=== PATIENT | female | born 1945 | race Caucasian/White ===

== ENCOUNTER 2018-07-27 13:51 | Outpatient (CLI) | payer MEDICARE | END 2018-07-27 13:52 | disposition home or self-care (01) | LOC: BICMAMMO 13:51 | PROVIDERS: ATTEND Family Medicine | DX: Z12.31 Encounter for screening mammogram for malignant neoplasm of breast (principal); R92.1 Mammographic calcification found on diagnostic imaging of breast; Z80.3 Family history of malignant neoplasm of breast; Z80.8 Family history of malignant neoplasm of other organs or systems; Z98.890 Other specified postprocedural states | CPT/HCPCS: 77063; 77067 ==

== ENCOUNTER 2019-09-01 10:26 | Outpatient (CLI) | payer MEDICARE ==
--- NOTE | 2019-09-01 11:11 | MMO ---
Bilateral MAMMO Bilat Screen [facility]. CLINICAL HISTORY: Patient is 74 years old and is seen for screening. The patient has no family history of breast cancer. The patient has no personal history of cancer. VIEWS: The views performed were: bilateral craniocaudal with tomosynthesis and bilateral mediolateral oblique with tomosynthesis. FILMS COMPARED: The present examination has been compared to prior imaging studies performed at [facility] on 06/08/2014, 06/21/2015, 11/13/2016 and 07/27/2018. This study has been interpreted with the assistance of computer-aided detection. MAMMOGRAM FINDINGS: The breasts are heterogeneously dense, which could obscure a lesion on mammography. Finding 1: There are stable post operative changes seen in the left breast. Finding 2: There are stable benign appearing calcifications seen in both breasts. There are no suspicious masses, suspicious calcifications, or new areas of architectural distortion. IMPRESSION: THERE IS NO MAMMOGRAPHIC EVIDENCE OF MALIGNANCY. A ROUTINE FOLLOW-UP MAMMOGRAM IN 1 YEAR IS RECOMMENDED. THE RESULTS OF THIS EXAM WERE SENT TO THE PATIENT. ACR BI-RADS Category 2 - Benign finding MAMMOGRAPHY NOTE: 1. A negative mammogram report should not delay a biopsy if a dominant of clinically suspicious mass is present. 2. Approximately 10% to 15% of breast cancers are not detected by mammography. 3. Adenosis and dense breasts may obscure an underlying neoplasm. Reported by: MITESH SPARKS MD Electonically Signed: [id number]
== END 2019-09-01 10:27 | disposition home or self-care (01) ==
LOC: BICMAMMO 10:26
PROVIDERS: ATTEND Family Medicine
DX: Z12.31 Encounter for screening mammogram for malignant neoplasm of breast (principal)
CPT/HCPCS: 77063; 77067

== ENCOUNTER 2020-05-09 06:52 | Outpatient (CLI) | payer MEDICARE, OTHER ==
[2020-05-09 14:28] LABS: #Eosinphils 0.1 thou/uL (0.0-0.7); #Lymphocytes 1.9 thou/uL (1.20-3.40); #Monocytes 0.6 thou/uL (0.11-0.59); #Neutrophils 3.3 thou/uL (1.40-6.50); %Basophils 0.8 % (0.0-1.0); %Eosinophils 1.9 % (0.0-10.0); %Lymphocytes 32.5 % (21.0-51.0); %Monocytes 9.2 % (0.0-10.0); %Neutrophils 55.6 % (42.0-75.0); Hemoglobin 14.3 g/dL (12.0-16.0); Mean Corpuscular HGB CONC 32.5 g/dL (32.0-36.0); Mean Corpuscular Hemoglobin 30.7 pg (27.0-31.0); Mean Corpuscular Volume 94.5 fL (78.0-98.0); Mean Platelet Volume 7.8 fL (7.4-10.4); Platelet Count 269 thou/uL (130-400); RBC Distribution Width 11.9 % (11.5-14.5); Red Blood Cell (RBC) Count 4.64 mill/uL (4.20-5.40)
[2020-05-09 15:10] LABS: Anion Gap 13 mmol/L (10-20); BUN (Urea Nitrogen) 17 mg/dL (9.8-20.1); Calc. Creatinine Clearance 0 mL/min (70-130); Calcium 9.5 mg/dL (7.8-10.44); Carbon Dioxide 26 mmol/L (23-31); Chloride 101 mmol/L (98-107); Estimated GFR-MDRD 51; Glucose 95 mg/dL (83-110); Potassium 4.3 mmol/L (3.5-5.1); Sodium 136 mmol/L (136-145)
[2020-05-10 13:32] LABS: SARS-CoV-2 MS2 Positive; SARS-CoV-2 N Gene Negative; SARS-CoV-2 S Gene Negative; SARS-CoV-2 orf1ab Negative
== END 2020-05-09 06:53 | disposition home or self-care (01) ==
LOC: LABBT 06:52
PROVIDERS: ATTEND Orthopaedic Surgery
DX: Z01.812 Encounter for preprocedural laboratory examination (principal); Z11.59 Encounter for screening for other viral diseases; S83.282A Other tear of lateral meniscus, current injury, left knee, initial encounter
CPT/HCPCS: 80048; 85025; U0003; 87635

== ENCOUNTER 2020-05-12 05:50 | Day surgery (SDC) | payer MEDICARE ==
[2020-05-08 11:46] VITALS: BMI 24.3
[2020-05-12] MEDS ORDERED: PROPOFOL 20 ML ONE (06:39)
[2020-05-12] MEDS ORDERED: Fentanyl 100 MCG/2 ML VIAL ONE (06:59)
--- NOTE | 2020-05-12 09:04 | OP ---
DATE OF PROCEDURE: 05/12/2020 PREOPERATIVE DIAGNOSIS: Lateral meniscus tear, left knee. POSTOPERATIVE DIAGNOSIS: Lateral meniscus tear, left knee. PROCEDURE PERFORMED: Arthroscopic partial lateral meniscectomy. ANESTHESIA: General. ESTIMATED BLOOD LOSS: Minimal. SPECIMEN: None. DRAIN: None. COMPLICATIONS: None. TOURNIQUET: Not used. DESCRIPTION OF PROCEDURE: The patient was taken to the operating room, where general anesthesia was induced. Left leg was prepped and draped in usual sterile fashion. Scope was placed in the lateral portal and probe was placed in the medial portal. Patellofemoral joint had some mild chondromalacia. Medial compartment had some mild chondromalacia, medial femoral condyle. I did a mild chondroplasty in this area. ACL was intact. Lateral meniscus had a large tear extending from anterior to posterior. This was debrided using a basket forceps, smoothed using a 4-0 full-radius resector. The knee was then irrigated. I took care to remove any loose bodies. The knee was then drained. Sterile dressings applied. Job ID: [id number]
== END 2020-05-12 10:10 | disposition home or self-care (01) ==
LOC: SDC 05:50
PROVIDERS: ATTEND Orthopaedic Surgery
PROC: 0SBD4ZZ Excision of Left Knee Joint, Percutaneous Endoscopic Approach (ICD-10-PCS; principal; 2020-05-12)
DX: S83.282A Other tear of lateral meniscus, current injury, left knee, initial encounter (principal); M22.42 Chondromalacia patellae, left knee; I10 Essential (primary) hypertension; N32.81 Overactive bladder; Z79.82 Long term (current) use of aspirin; Z79.899 Other long term (current) drug therapy; Z88.2 Allergy status to sulfonamides; Z88.5 Allergy status to narcotic agent; W01.198A Fall on same level from slipping, tripping and stumbling with subsequent striking against other object, initial encounter
CPT/HCPCS: J2704; J3010

== ENCOUNTER 2020-09-11 15:23 | Outpatient (CLI) | payer MEDICARE ==
--- NOTE | 2020-09-11 16:43 | MMO ---
Bilateral MAMMO Bilat Screen [facility]. CLINICAL HISTORY: Patient is 75 years old and is seen for screening. The patient has the following family history of breast cancer: father. The patient has no personal history of cancer. The patient has a history of left Ultrasound Guided Core Biopsy in unknown years - benign - x 2 and right Stereotatic Biopsy in unknown year - benign. VIEWS: The views performed were: bilateral craniocaudal with tomosynthesis and bilateral mediolateral oblique with tomosynthesis. FILMS COMPARED: The present examination has been compared to prior imaging studies performed at [facility] on 06/21/2015, 11/13/2016, 07/27/2018 and 09/01/2019. This study has been interpreted with the assistance of computer-aided detection. MAMMOGRAM FINDINGS: The breasts are heterogeneously dense, which could obscure a lesion on mammography. Finding 1: There are benign appearing calcifications seen in both breasts. Finding 2: There are stable post operative changes seen in the left breast. Finding 3: There is a stable biopsy clip seen in the right breast. There are no suspicious masses, suspicious calcifications, or new areas of architectural distortion. IMPRESSION: THERE IS NO MAMMOGRAPHIC EVIDENCE OF MALIGNANCY. A ROUTINE FOLLOW-UP MAMMOGRAM IN 1 YEAR IS RECOMMENDED. THE RESULTS OF THIS EXAM WERE SENT TO THE PATIENT. ACR BI-RADS Category 2 - Benign finding MAMMOGRAPHY NOTE: 1. A negative mammogram report should not delay a biopsy if a dominant of clinically suspicious mass is present. 2. Approximately 10% to 15% of breast cancers are not detected by mammography. 3. Adenosis and dense breasts may obscure an underlying neoplasm. Reported by: YUE SANDOVAL MD Electonically Signed: [id number]
== END 2020-09-11 15:24 | disposition home or self-care (01) ==
LOC: BICMAMMO 15:23
PROVIDERS: ATTEND Family Medicine
DX: Z12.31 Encounter for screening mammogram for malignant neoplasm of breast (principal); Z80.3 Family history of malignant neoplasm of breast; Z91.89 Other specified personal risk factors, not elsewhere classified
CPT/HCPCS: 77063; 77067

== ENCOUNTER 2021-11-28 13:14 | Outpatient (CLI) | payer MEDICARE | END 2021-11-28 13:15 | disposition home or self-care (01) | LOC: BICMAMMO 13:14 | PROVIDERS: ATTEND Family Medicine | DX: Z12.31 Encounter for screening mammogram for malignant neoplasm of breast (principal); Z80.3 Family history of malignant neoplasm of breast | CPT/HCPCS: 77063; 77067 ==

== ENCOUNTER 2022-05-02 13:42 | Outpatient (CLI) | payer MEDICARE ==
[2022-05-02 15:06] LABS: #Eosinphils 0.2 10x3/uL (0.0-0.5); #Monocytes 0.6 10x3/uL (0.0-1.1); #Neutrophils 3.9 10x3/uL (1.5-8.4); %Basophils 0.6 % (0.0-2.0); %Eosinophils 2.8 % (0.0-6.0); %Lymphocytes 23.4 % (18.0-47.0); %Monocytes 10.4 % (0.0-10.0); %Neutrophils 62.6 % (40.0-75.0); Mean Corpuscular HGB CONC 32.9 g/dL (32.0-36.0); Mean Corpuscular Hemoglobin 30.1 pg (27.0-33.0); Mean Corpuscular Volume 91.4 fl (81.6-98.3); Mean Platelet Volume 9.2 fl (7.4-10.4); Platelet Count 243 10x3/uL (150-450); Red Blood Cell (RBC) Count 4.65 10x6/uL (3.90-5.03); White Blood Cell (WBC) Count 6.2 10x3/uL (3.5-10.5)
[2022-05-02 15:22] LABS: PTT 25.9 sec (22.0-33.0); Prothrombin Time 10.4 sec (9.5-12.1)
[2022-05-02 15:25] LABS: ALT (SGPT) 21 U/L (8-55); AST (SGOT) 25 U/L (5-34); Albumin 4.4 g/dL (3.4-4.8); Alkaline Phosphatase 66 U/L (40-110); Anion Gap 14 mmol/L (10-20); BUN (Urea Nitrogen) 29 mg/dL (9.8-20.1); Bilirubin, Total 0.9 mg/dL (0.2-1.2); Calc. Creatinine Clearance 0 mL/min (70-130); Calcium 9.3 mg/dL (7.8-10.44); Carbon Dioxide 25 mmol/L (23-31); Chloride 101 mmol/L (98-107); Estimated GFR 61; Globulin 2.7 g/dL (2.4-3.5); Glucose 93 mg/dL (83-110); Potassium 3.7 mmol/L (3.5-5.1); Protein, Total 7.1 g/dL (5.8-8.1); Sodium 136 mmol/L (136-145)
== END 2022-05-02 13:43 | disposition home or self-care (01) ==
LOC: LABBT 13:42
PROVIDERS: ATTEND Orthopaedic Surgery
DX: Z01.818 Encounter for other preprocedural examination (principal); Z20.822 Contact with and (suspected) exposure to COVID-19
CPT/HCPCS: 80053; 85025; 85610; 85730; 87081; 87811; 93005; 93010

== ENCOUNTER 2022-05-07 06:26 | Inpatient (IN) | payer MEDICARE ==
[2022-05-06 11:21] VITALS: BMI 24.8
[2022-05-07] MEDS ORDERED: Sodium Chloride 0.9% 100 ML ONE ×2 (06:57→09:04)
[2022-05-07] MEDS ORDERED: Tranexamic Acid 1,000 MG/10 ML VIAL ONE (06:57)
[2022-05-07] MEDS ORDERED: Vancomycin 1 GM/200 ML BAG ONE (07:51)
[2022-05-07] MEDS ORDERED: Fentanyl 100 MCG/2 ML VIAL ONE ×2 (08:16→12:00)
[2022-05-07] MEDS ORDERED: Midazolam HCl 2 mg/2 ml Vial ONE (08:16)
[2022-05-07] MEDS ORDERED: traMADol HCl 50 MG TAB PO PRN (08:30)
[2022-05-07] MEDS ORDERED: Promethazine HCl 25 MG/ML VIAL IM PRN ×2 (08:30→10:03)
[2022-05-07] MEDS ORDERED: Ropivacaine 0.2% 550 ML 550 ML NERVE BLCK SCH (08:30)
[2022-05-07] MEDS ORDERED: HYDROcodone/Acetaminophen 10/325 mg Tablet PO PRN ×2 (08:30)
[2022-05-07] MEDS ORDERED: Zolpidem Tartrate 5 MG TAB PO PRN ×2 (08:30→08:58)
[2022-05-07] MEDS ORDERED: Ondansetron PF 4 MG/2 ML Vial IVP PRN (08:30)
[2022-05-07] MEDS ORDERED: Fentanyl 100 MCG/2 ML VIAL SLOW IVP PRN (08:31)
[2022-05-07] MEDS ORDERED: Bupivacaine PF 0.5% 30 ML VIAL ONE (08:58)
[2022-05-07] MEDS ORDERED: Acetaminophen 325 MG TAB PO PRN (08:58)
[2022-05-07] MEDS ORDERED: EPINEPHrine 1 MG/ML AMP ONE (08:58)
[2022-05-07] MEDS ORDERED: diphenhydrAMINE 25 MG CAP PO PRN (08:58)
[2022-05-07] MEDS ORDERED: CEFAZOLIN 2 GM VIAL ONE (09:04)
[2022-05-07] MEDS ORDERED: fentaNYL Citrate/PF 100 MCG/2 ML SYRINGE ONE ×3 (09:11→11:01)
[2022-05-07] MEDS ORDERED: Labetalol HCl 100 MG/20 ML VIAL ONE (09:18)
[2022-05-07] MEDS ORDERED: Lidocaine 1% PF 5 ML VIAL ONE (09:18)
[2022-05-07] MEDS ORDERED: Ondansetron PF 4 MG/2 ML Vial ONE (09:18)
[2022-05-07] MEDS ORDERED: Rocuronium Bromide 10 MG/ML (10ML VIAL) ONE (09:18)
[2022-05-07] MEDS ORDERED: Bupivacaine HCl 0.5%/Epinephrine 1:200,000/PF 30 ml Vial ONE (09:18)
[2022-05-07] MEDS ORDERED: Dexamethasone 20 MG/5 ML VIAL ONE (09:18)
[2022-05-07] MEDS ORDERED: PROPOFOL 200 MG/20 ML VIAL ONE (09:18)
[2022-05-07] MEDS ORDERED: Succinylcholine 200 MG/10 ml SYRINGE FS ONE (09:18)
[2022-05-07] MEDS ORDERED: Meperidine HCl/PF 25 MG/ML VIAL SLOW IVP PRN (10:03)
[2022-05-07] MEDS ORDERED: Ondansetron HCl/PF 4 MG/2 ML Vial IVP PRN (10:03)
[2022-05-07] MEDS ORDERED: PACU-Morphine 4MG/ML VIAL SLOW IVP PRN (10:03)
[2022-05-07] MEDS ORDERED: Promethazine HCl 25 MG/ML VIAL IVPB PRN (10:03)
[2022-05-07] MEDS ORDERED: SUGAMMADEX SODIUM 200 MG/2 ML VIAL ONE (10:16)
[2022-05-07] MEDS: Ketorolac Tromethamine 30 MG/ML VIAL IVP SCH ×3 (11:25→23:17)
[2022-05-07] MEDS ORDERED: Ketorolac Tromethamine 30 MG/ML VIAL ONE (11:26)
[2022-05-07] MEDS: Aspirin 81 mg Enteric Coated Tablet PO SCH ×2 (13:48→22:45)
[2022-05-07] MEDS: Sodium Chloride 0.9% 1,000 ML IV SCH ×3 (13:48→23:17)
[2022-05-07] MEDS: FLUoxetine HCl 20 MG CAP PO SCH (13:49)
[2022-05-07] MEDS: CEFAZOLIN 2 GM in Sodium Chloride 0.9% 100 ML IVPB SCH ×2 (13:49→17:14)
[2022-05-07] MEDS: Ferrous Gluconate 324 MG TAB PO SCH ×2 (13:49→22:45)
[2022-05-07] MEDS: Baclofen 10 MG TAB PO SCH ×2 (13:49→22:45)
[2022-05-07] MEDS: Multivitamin W/ Minerals 1 TAB PO SCH (13:49)
[2022-05-07] MEDS: Oxybutynin 5 MG TAB PO SCH ×2 (13:49→22:45)
[2022-05-07] MEDS: Senokot S 8.6-50 MG TAB PO SCH ×2 (13:50→22:46)
[2022-05-07] MEDS: Ondansetron PF 4 MG/2 ML Vial IVP PRN (21:39)
[2022-05-08] MEDS: Ketorolac Tromethamine 30 MG/ML VIAL IVP SCH ×3 (05:18→18:11)
[2022-05-08 05:43] LABS: Hemoglobin 9.9 g/dL (12.0-16.0); Mean Corpuscular HGB CONC 32.2 g/dL (32.0-36.0); Mean Corpuscular Hemoglobin 31.8 pg (27.0-31.0); Mean Corpuscular Volume 98.9 fL (78.0-98.0); Mean Platelet Volume 7.3 fL (7.4-10.4); Platelet Count 168 thou/uL (130-400); RBC Distribution Width 12.1 % (11.5-14.5); White Blood Cell (WBC) Count 8.6 thou/uL (4.8-10.8)
[2022-05-08] MEDS: Ondansetron PF 4 MG/2 ML Vial IVP PRN (06:12)
[2022-05-08] MEDS ORDERED: Multivit, Therapeutic 1 TAB PO SCH (09:00)
[2022-05-08] MEDS: Stress 600 With Zinc 1 TAB PO SCH (09:15)
[2022-05-08] MEDS: Hydrochlorothiazide 25 MG TAB PO SCH (09:15)
[2022-05-08] MEDS: Baclofen 10 MG TAB PO SCH ×2 (09:16→21:17)
[2022-05-08] MEDS: CeleCOXIB 100 MG CAP PO SCH (09:17)
[2022-05-08] MEDS: Multivitamin W/ Minerals 1 TAB PO SCH (09:17)
[2022-05-08] MEDS: Aspirin 81 mg Enteric Coated Tablet PO SCH ×2 (09:17→21:17)
[2022-05-08] MEDS: Senokot S 8.6-50 MG TAB PO SCH ×2 (09:17→21:18)
[2022-05-08] MEDS: Oxybutynin 5 MG TAB PO SCH ×2 (09:18→21:17)
[2022-05-08] MEDS: Ferrous Gluconate 324 MG TAB PO SCH ×2 (09:18→21:17)
[2022-05-08] MEDS: FLUoxetine HCl 20 MG CAP PO SCH (09:18)
[2022-05-08] MEDS: Vitamin E 400 UNITS CAP PO SCH (09:18)
[2022-05-08] MEDS: traMADol HCl 50 MG TAB PO PRN ×2 (09:20→21:52)
[2022-05-08] MEDS: Promethazine HCl 25 MG/ML VIAL IM PRN ×2 (09:21→21:52)
[2022-05-08] MEDS: Sodium Chloride 0.9% 1,000 ML IV SCH (10:40)
[2022-05-09] MEDS: Ketorolac Tromethamine 30 MG/ML VIAL IVP SCH ×2 (00:22→05:30)
[2022-05-09] MEDS: Sodium Chloride 0.9% 1,000 ML IV SCH ×2 (01:41→10:57)
[2022-05-09 06:04] LABS: Hemoglobin 11.1 g/dL (12.0-16.0); Mean Corpuscular Hemoglobin 32.3 pg (27.0-31.0); Mean Platelet Volume 7.4 fL (7.4-10.4); Platelet Count 192 thou/uL (130-400); RBC Distribution Width 12.4 % (11.5-14.5); Red Blood Cell (RBC) Count 3.46 mill/uL (4.20-5.40); White Blood Cell (WBC) Count 10.5 thou/uL (4.8-10.8)
[2022-05-09] MEDS: Senokot S 8.6-50 MG TAB PO SCH (08:57)
[2022-05-09] MEDS: Aspirin 81 mg Enteric Coated Tablet PO SCH (08:57)
[2022-05-09] MEDS: Hydrochlorothiazide 25 MG TAB PO SCH (08:59)
[2022-05-09] MEDS: FLUoxetine HCl 20 MG CAP PO SCH (08:59)
[2022-05-09] MEDS: Baclofen 10 MG TAB PO SCH (08:59)
[2022-05-09] MEDS: Multivitamin W/ Minerals 1 TAB PO SCH (09:00)
[2022-05-09] MEDS: Vitamin E 400 UNITS CAP PO SCH (09:00)
[2022-05-09] MEDS: Stress 600 With Zinc 1 TAB PO SCH (09:00)
[2022-05-09] MEDS: Oxybutynin 5 MG TAB PO SCH (09:01)
[2022-05-09] MEDS: CeleCOXIB 100 MG CAP PO SCH (09:01)
[2022-05-09] MEDS: Ferrous Gluconate 324 MG TAB PO SCH (09:01)
[2022-05-09] MEDS: traMADol HCl 50 MG TAB PO PRN ×2 (09:08→14:45)
[2022-05-09] MEDS ORDERED: Promethazine 25 MG TAB PO PRN (10:02)
[2022-05-09 15:20] VITALS: BP 148/70; TEMP 98.5
== END 2022-05-09 15:15 | disposition home or self-care (01) | DRG 470 ==
LOC: SDC 06:26 → SURG A 08:59 → OBSVTOIN 05-08 17:45
PROVIDERS: ADMIT Orthopaedic Surgery; ATTEND Orthopaedic Surgery
PROC: 0SRD0J9 Replacement of Left Knee Joint with Synthetic Substitute, Cemented, Open Approach (ICD-10-PCS; principal; 2022-05-07)
DX: M17.12 Unilateral primary osteoarthritis, left knee (principal); Z88.6 Allergy status to analgesic agent; Z88.2 Allergy status to sulfonamides
CPT/HCPCS: 36415; 85027; 96374; 96375; 96376; A4306; C1713; C1776; G0378; J0171; J0690; J1100; J1885; J2250; J2405; J2550; J2704; J2795; J3010; J3370; J3490; J7050; S0020

== ENCOUNTER 2022-05-11 20:19 | Emergency (ER) | payer MEDICARE ==
[2022-05-11 21:03] LABS: #Eosinphils 0.3 thou/uL (0.0-0.7); #Lymphocytes 1.4 thou/uL (1.20-3.40); #Monocytes 0.7 thou/uL (0.11-0.59); #Neutrophils 3.6 thou/uL (1.40-6.50); %Basophils 0.3 % (0.0-1.0); %Eosinophils 5.5 % (0.0-10.0); %Lymphocytes 22.4 % (21.0-51.0); Hemoglobin 10.2 g/dL (12.0-16.0); Mean Corpuscular HGB CONC 32.4 g/dL (32.0-36.0); Mean Corpuscular Hemoglobin 32.8 pg (27.0-31.0); Mean Platelet Volume 6.9 fL (7.4-10.4); Platelet Count 226 thou/uL (130-400); RBC Distribution Width 12.6 % (11.5-14.5)
[2022-05-11 21:25] LABS: ALT (SGPT) 37 U/L (8-55); AST (SGOT) 46 U/L (5-34); Albumin 3.4 g/dL (3.4-4.8); Alkaline Phosphatase 82 U/L (40-110); Anion Gap 15 mmol/L (10-20); BUN (Urea Nitrogen) 22 mg/dL (9.8-20.1); Bilirubin, Total 0.7 mg/dL (0.2-1.2); Calc. Creatinine Clearance 0 mL/min (70-130); Calcium 8.7 mg/dL (7.8-10.44); Carbon Dioxide 26 mmol/L (23-31); Chloride 104 mmol/L (98-107); Estimated GFR 65; Globulin 2.9 g/dL (2.4-3.5); Glucose 100 mg/dL (83-110); Potassium 3.8 mmol/L (3.5-5.1); Protein, Total 6.3 g/dL (5.8-8.1); Sodium 141 mmol/L (136-145)
== END 2022-05-11 23:05 | disposition home or self-care (01) ==
LOC: ERS 20:19
DX: L76.82 Other postprocedural complications of skin and subcutaneous tissue (principal); I10 Essential (primary) hypertension; Z87.891 Personal history of nicotine dependence; Z79.899 Other long term (current) drug therapy; Z96.652 Presence of left artificial knee joint; M79.605 Pain in left leg
CPT/HCPCS: 36415; 80053; 83605; 85025; 87040